=== PATIENT | male | born 1975 | race Caucasian/White ===

== ENCOUNTER 2017-03-26 17:43 | Emergency (ER) | payer SELFPAY ==
[2017-03-26] MEDS ORDERED: Ibuprofen TAB* 600 MG PO ONE (19:10)
--- NOTE | 2017-03-26 19:46 | RAD ---
Indication: Right knee pain. 4 views of the right knee demonstrates no fracture. No joint effusion is noted. Joint spaces well-preserved. IMPRESSION: Unremarkable right knee.
--- NOTE | 2017-03-26 20:20 | UC ---
Carlos Gary Abhishek, scribed for Narinder Barrera MD on 03/26/17 at 1914 . Knee Pain HPI - HPI Summary HPI Summary: This patient is a 41 year old M presenting to [facility] with a chief complaint of right knee pain since two weeks. The Pt states walking is excruciating. Medications reviewed and pt has taken Aleve, and Tylenol. The pain is located right underneath the knee cap. The patient rates the pain 10/10 in severity. Symptoms aggravated by movement. Symptoms alleviated by nothing. Patient reports slow range of motion, and a clicking sound. Patient denies fevers, recent injury and chills. Pertinent PMHX torn meniscus in the right knee. - History of Current Complaint Chief Complaint: UCLowerExtremity Stated Complaint: KNEE PAIN Time Seen by Provider: 03/26/17 19:01 Hx Obtained From: Patient Onset/Duration: Gradual Onset - two weeks Pain Intensity: 10 Pain Scale Used: 0-10 Numeric Aggravating Factor(s): Movement - Allergies/Home Medications Allergies/Adverse Reactions: Allergies Allergy/AdvReac Type Severity Reaction Status Date / Time No Known Allergies Allergy Verified 03/26/17 18:26 PMH/Surg Hx/FS Hx/Imm Hx Cardiovascular History: Hypertension Other Respiratory History: sleep apnea - Surgical History Surgical History: Yes Surgery Procedure, Year, and Place: tonsillectomy 2008 - Family History Known Family History: Positive: Hypertension, Other - Cancer Negative: Cardiac Disease - Social History Occupation: Employed Full-time Alcohol Use: Rare Substance Use Type: None Smoking Status (MU): Never Smoked Tobacco Review of Systems Constitutional: Other - Negative fever and chills Skin: Negative Eyes: Negative ENT: Negative Respiratory: Negative Cardiovascular: Negative Gastrointestinal: Negative Genitourinary: Negative Motor: Decreased ROM - "slow" Musculoskeletal: Other: - right knee pain located below the knee cap. "clicking sound" Neurological: Negative Psychological: Negative All Other Systems Reviewed And Are Negative: Yes Physical Exam Triage Information Reviewed: Yes Vital Signs: Initial Vital Signs Temp 98.0 F 03/26/17 18:20 Pulse 88 03/26/17 18:20 Resp 22 03/26/17 18:20 Pulse Ox 97 03/26/17 18:20 - Additional Comments General: well-appearing, no pain distress, No acute distress Skin: warm, color reflects adequate perfusion, dry Head: normal Eyes: EOMI, JOSE MARTIN ENT: normal Neck: supple, nontender Respiratory: CTA, breath sounds present Cardiovascular: RRR Abdomen: soft, nontender Bowel: present Musculoskeletal: normal, strength/ROM intact, Mildly positive bilaterally [facility]'s test, Rest of the knee is not tender, Right knee tender to palpation of the patella with movement. No effusion Neurological: normal, sensory/motor intact, A&O x3, No neurological deficits, Strength 5/5 Psychological: affect/mood appropriate Diagnostics - Radiology Right Knee X-ray Radiology Interpretation Completed By: Radiologist - Right knee x-ray reveal Unremarkable right knee. physician has reviewed the radiology report and agrees. Knee Pain Course/Dx - Differential Dx/Diagnosis Provider Diagnoses: RIGHT KNEE PAIN Discharge - Discharge Plan Condition: Stable Disposition: HOME Prescriptions: HYDROcodone/ACETAMIN 5-325 MG* [[place] 5-325 TAB*] 1 tab PO Q4H PRN #30 tab MDD 6 PRN Reason: Pain Patient Education Materials: Knee Pain (ED) Referrals: [facility] [Outside] [facility] [Outside] No Primary Care Phys,NOPCP [Primary Care Provider] - Additional Instructions: FOLLOW UP WITH YOUR DOCTOR. TAKE IBUPROFEN 600MG THREE TIMES A DAY. GET RECHECKED FOR ANY WORSENING OF YOUR CONDITION OR QUESTIONS OR CONCERNS. The documentation as recorded by the Carlos dickinson Abhishek accurately reflects the service I personally performed and the decisions made by me, Narinder Barrera MD.
== END 2017-03-26 20:31 | disposition home or self-care (01) ==
LOC: UCEAST 17:43
DX: M25.561 Pain in right knee (principal)
CPT/HCPCS: 99202; A9270-GY; G0463

== ENCOUNTER 2018-12-30 14:29 | Emergency (ER) | payer SELFPAY ==
--- NOTE | 2018-12-30 16:20 | ED ---
Abdominal Pain/Female - History of Current Complaint Chief Complaint: EDFlankPain Stated Complaint: BACK PAIN, ABD PAIN , LEG PAIN Time Seen by Provider: 12/30/18 16:19 Pain Intensity: 9 Allergies/Adverse Reactions: Allergies Allergy/AdvReac Type Severity Reaction Status Date / Time No Known Allergies Allergy Verified 03/26/17 18:26 PMH/Surg Hx/FS Hx/Imm Hx Endocrine/Hematology History: Denies: Hx Diabetes, Hx Thyroid Disease Cardiovascular History: Denies: Hx Hypertension Respiratory History: Denies: Hx Asthma, Hx Chronic Obstructive Pulmonary Disease (COPD) GI History: Denies: Hx Ulcer - Surgical History Surgery Procedure, Year, and Place: tonsillectomy 2009 Infectious Disease History: No Infectious Disease History: Denies: Hx Clostridium Difficile, Hx Hepatitis, Hx Human Immunodeficiency Virus (HIV), Hx of Known/Suspected MRSA, Hx Shingles, Hx Tuberculosis, Hx Known/ Suspected VRE, Hx Known/Suspected VRSA, History Other Infectious Disease, Traveled Outside the [place] in Last 30 Days - Family History Known Family History: Positive: Hypertension, Other - Cancer Negative: Cardiac Disease - Social History Alcohol Use: Rare Substance Use Type: Reports: None Smoking Status (MU): Never Smoked Tobacco Physical Exam Vital Signs On Initial Exam: Initial Vitals Temp Pulse Resp BP Pulse Ox 97.9 F 80 18 161/84 97 12/30/18 14:48 12/30/18 14:48 12/30/18 14:48 12/30/18 14:48 12/30/18 14:48 Diagnostics - Vital Signs Vital Signs Temp Pulse Resp BP Pulse Ox 12/30/18 14:48 97.9 F 80 18 161/84 97 - Laboratory Lab Statement: Any lab studies that have been ordered have been reviewed, and results considered in the medical decision making process. Discharge ED - Discharge Plan Referrals: No Primary Care Phys,NOPCP [Primary Care Provider] -
[2018-12-30] MEDS ORDERED: Ketorolac INJ* 30 MG/ML 1 ML VIAL IV PUSH ONE (16:22)
[2018-12-30] MEDS ORDERED: Ondansetron INJ* 2 MG/ML VIAL IV ONE (16:22)
[2018-12-30] MEDS ORDERED: Morphine 10 MG/ML VIAL (1 ml) IV ONE (16:22)
[2018-12-30] MEDS ORDERED: NS 0.9% 1000 ML** 1,000 ML IV ONE (16:22)
--- NOTE | 2018-12-30 16:26 | ED ---
Abdominal Pain/Male - HPI Summary HPI Summary: This patient is a 43 year old male presenting to [facility] with a chief complaint of right flank pain. He states the pain radiates down to his groin. He states abdominal discomfort, nausea, and vomiting. He says he has had a similar pain before when he had kidney stones but states he did not have the vomiting. He rates his pain 9/10 in severity. He describes the pain as a sharp pain. - History of Current Complaint Chief Complaint: EDFlankPain Stated Complaint: BACK PAIN, ABD PAIN , LEG PAIN Time Seen by Provider: 12/30/18 16:19 Hx Obtained From: Patient Pain Intensity: 9 Pain Scale Used: 0-10 Numeric Location: Flank - Allergies/Home Medications Allergies/Adverse Reactions: Allergies Allergy/AdvReac Type Severity Reaction Status Date / Time No Known Allergies Allergy Verified 03/26/17 18:26 PMH/Surg Hx/FS Hx/Imm Hx Endocrine/Hematology History: Denies: Hx Diabetes, Hx Thyroid Disease Cardiovascular History: Denies: Hx Hypertension Respiratory History: Denies: Hx Asthma, Hx Chronic Obstructive Pulmonary Disease (COPD) GI History: Denies: Hx Ulcer - Surgical History Surgery Procedure, Year, and Place: tonsillectomy 2009 Infectious Disease History: No Infectious Disease History: Denies: Hx Clostridium Difficile, Hx Hepatitis, Hx Human Immunodeficiency Virus (HIV), Hx of Known/Suspected MRSA, Hx Shingles, Hx Tuberculosis, Hx Known/ Suspected VRE, Hx Known/Suspected VRSA, History Other Infectious Disease, Traveled Outside the [place] in Last 30 Days - Family History Known Family History: Positive: Hypertension, Other - Cancer Negative: Cardiac Disease - Social History Alcohol Use: Rare Substance Use Type: Reports: None Smoking Status (MU): Never Smoked Tobacco Review of Systems Positive: Abdominal Pain, Vomiting, Nausea Positive: flank pain All Other Systems Reviewed And Are Negative: Yes Physical Exam - Summary Physical Exam Summary: Appearance: Morbidly Obese male lying in bed comfortably Skin: Warm, dry, no obvious rash Eyes: sclera anicteric, no conjunctival pallor ENT: mucous membranes moist, pharynx appears normal Neck: Supple, nontender Respiratory: Clear to auscultation, no signs of respiratory distress Cardiovascular: Normal S1, S2. No murmurs. Normal distal pulses in tibial and radial bilaterally. Abdomen: Soft, nontender, normal active bowel sounds present. Tenderness over the right flank. Musculoskeletal: Normal, Strength/ROM Intact Neurological: A&Ox3, awake and alert, mentation is normal, speech is fluent and appropriate Psychiatric: affect is normal, does not appear anxious or depressed Triage Information Reviewed: Yes Vital Signs On Initial Exam: Initial Vitals Temp Pulse Resp BP Pulse Ox 97.9 F 80 18 161/84 97 12/30/18 14:48 12/30/18 14:48 12/30/18 14:48 12/30/18 14:48 12/30/18 14:48 Vital Signs Reviewed: Yes Procedures - Sedation Patient Received Moderate/Deep Sedation with Procedure: No Diagnostics - Vital Signs Vital Signs Temp Pulse Resp BP Pulse Ox 12/30/18 14:48 97.9 F 80 18 161/84 97 - Laboratory Result Diagrams: 12/30/18 16:32 12/30/18 16:32 Lab Statement: Any lab studies that have been ordered have been reviewed, and results considered in the medical decision making process. - CT Abd/Pel CT Interpretation Completed By: Radiologist Summary of CT Findings: Mild hydronephrosis of right kidney caused by a 5 mm calculus in the right mid ureter at the level of L4-5. ED Provider has reviewed this report. - Ultrasound No standard instances Ultrasound Interpretation Completed By: Radiologist Summary of Ultrasound Findings: Renal: Multiple calculi right kindey. ED Provider has reviewed this report. Abdominal Pain Male Course/Dx - Course Course Of Treatment: This patient is a 43 year old male presenting to [facility] with a chief complaint of right flank pain. Labs were unremarkable except for WBC 17.9, Abs Neuts 16.4, Creatinine 1.51, Glucose 169 H, Lactic Acid 3.0 H, CRP 18.51 H. Urinalysis pending. Renal US reveals Multiple calculi right kindey. CT Abd/Pel reveals mild hydronephrosis of right kidney caused by a 5 mm calculus in the right mid ureter at the level of L4-5. The patient was administered morphine, toradol, Percocet, Zofran, and NS in the ED. A plan for discharge was discussed with the patient and he was agreeable with this plan. - Diagnoses Provider Diagnoses: Renal colic on right side Discharge ED - Sign-Out/Discharge Documenting (check all that apply): Patient Departure - Discharge - Discharge Plan Condition: Stable Disposition: HOME Prescriptions: Ondansetron ODT TAB* [Zofran 4 MG Odt TAB*] 8 mg PO Q6H PRN #12 tab.odt PRN Reason: Nausea oxyCODONE/Acetamin 5/325 MG* [Percocet 5/325 TAB*] 2 tab PO Q4H PRN #20 tab MDD 4 PRN Reason: Pain - Severe Patient Education Materials: Kidney Stones (ED) Referrals: Arslan Ortiz MD [Medical Doctor] - Additional Instructions: Use the prescribed medications to control the nausea and pain. Contact Dr. Ortiz's office to make an appt for later in the week or early next week, you can always cancel if it passes. I would also recommend taking an alleve twice daily as a baseline for your pain. - Attestation Statements Document Initiated by Lina: Yes Documenting Scribe: Isaac Jack Provider For Whom Lina is Documenting (Include Credential): Alcides Chavis MD Scribe Attestation: I, Isaac Jack, scribed for Alcides Chavis MD on 12/30/18 at 2039. Status of Scribe Document: Ready
[2018-12-30 16:52] LABS: ABS Monocytes 0.5 10^3/ul (0-0.8); ABS Neutrophils 16.4 10^3/ul (1.5-7.7); ABS Nucleated RBC 0.1 10^3/ul; Hematocrit 43 % (42-52); Hemoglobin 14.4 g/dL (14.0-18.0); Lymphocyte % 5.5 %; Mean Corpuscular HGB Conc 34 g/dL (31-36); Mean Corpuscular Hemoglobin 30 pg (27-31); Mean Corpuscular Volume 88 fL (80-94); Mean Platelet Volume 9.3 fL (7.4-10.4); Nucleated Red Blood Cells % 0.3; Platelet Count 240 10^3/uL (150-450); Red Blood Count 4.85 10^6 /uL (4.18-5.48); Red Cell Distribution Width 14 % (10-15); White Blood Count 17.9 10^3/uL (3.5-10.8)
[2018-12-30 17:13] LABS: Albumin 4.4 g/dL (3.2-5.2); Albumin/Globulin Ratio 1.2 (1-3); BUN/Creatinine Ratio 9.9 (8-20); C Reactive Protein 18.51 mg/L (<8.01); Calcium 9.8 mg/dL (8.6-10.3); EGFR African American 61.3 (>60); EGFR Non-African American 50.7 (>60); Globulin 3.8 g/dL (2-4); Potassium 4.1 mmol/L (3.5-5.0); Total Bilirubin 0.4 mg/dL (0.2-1.0); Total Protein 8.2 g/dL (6.4-8.9)
[2018-12-30] MEDS ORDERED: oxyCODONE/Acetamin 5/325 MG* TAB PO ONE (19:44)
[2018-12-30 20:18] VITALS: BP 152/89
[2018-12-30] MEDS ORDERED: Ondansetron ODT TAB* 4 MG SL ONE (20:24)
[2018-12-30 20:34] LABS: Urine Appearance Turbid; Urine Bacteria Absent (Absent); Urine Bilirubin Negative (Negative); Urine Blood Negative (Negative); Urine Color Yellow; Urine Glucose Negative (Negative); Urine Ketones Trace (Negative); Urine Nitrite Negative (Negative); Urine Protein 1+(30 mg/dL) (Negative); Urine Red Blood Cell Absent (Absent); Urine Specific Gravity 1.028 (1.010-1.030); Urine Squamous Epithelial Cell Present (Absent); Urine Urobilinogen Negative (Negative); Urine White Blood Cell 1+(6-10/hpf) (Absent)
== END 2018-12-30 20:58 | disposition home or self-care (01) ==
LOC: ED 14:29
DX: N23 Unspecified renal colic (principal); R11.2 Nausea with vomiting, unspecified
CPT/HCPCS: 36415; 74176; 76775; 80053; 81003; 81015; 83605; 83690; 85025; 86140; 87086; 96361; 96374; 96375; 99283; A9270-GY; J1885; J2270; J2405